=== PATIENT | female | born 1940 | race American Indian/Alaskan Native ===

== ENCOUNTER 2018-09-15 11:15 | Outpatient (CLI) | payer MEDICARE ==
--- NOTE | 2018-09-15 13:01 | Ultrasound Report ---
ULTRASOUND ABDOMEN LIMITED: TECHNIQUE: Transabdominal ultrasound with color Doppler interrogation. HISTORY: Elevated liver function test. COMPARISON: none. FINDINGS: LIVER: Normal. BILIARY SYSTEM: Multiple shadowing gallstones are noted in the gallbladder. No evidence for abnormal dilatation or wall thickening. The CBD measures 3 mm. PANCREAS: Normal. RIGHT KIDNEY: Normal. PROXIMAL AORTA: Normal. ASCITES: None. IMPRESSION: Cholelithiasis.
== END 2018-09-15 11:16 | disposition home or self-care (01) ==
LOC: US 11:15
PROVIDERS: ATTEND Internal Medicine Gastroenterology
DX: K80.20 Calculus of gallbladder without cholecystitis without obstruction (principal)
CPT/HCPCS: 76705

== ENCOUNTER 2019-09-27 09:18 | Outpatient (CLI) | payer MEDICARE ==
--- NOTE | 2019-09-27 15:05 | Nuclear Medicine Report ---
PARATHYROID SCAN HISTORY: Hypercalcemia COMPARISON: None. TECHNIQUE: Following the intravenous administration of [id number], early and delayed anterior a nd oblique images of the neck and upper thorax were acquired. RADIOPHARMACEUTICAL: 19.5 mCi of [id number] FINDINGS: EARLY IMAGING: Diffuse symmetric physiologic thyroid activity. DELAYED IMAGING: There is focal persistent activity overlying the expected position of the left infer ior parathyroid gland. Additional Findings: None. IMPRESSION: 1. Findings consistent with a left inferior parathyroid adenoma. Signer Name: Kameron Green Jr, MD Signed: 09/27/2019 3:00 PM Workstation Name: [id number]
== END 2019-09-27 09:19 | disposition home or self-care (01) ==
LOC: NM 09:18
PROVIDERS: ATTEND Internal Medicine
DX: E83.52 Hypercalcemia (principal)
CPT/HCPCS: 78070; A9500